=== PATIENT | male | born 1985 | race Caucasian/White ===

== ENCOUNTER 2017-05-26 09:09 | Emergency (ER) | payer OTHER ==
[~2017-05-26] VITALS: Ht 177.8 cm; Wt 97.5 kg
[~2017-05-26 09:09] MED LIST: ASPIR 8181 M1 PO; NOHOMEMEDICATIONS; TOPROL XL50 MG PO
[2017-05-26 09:25] VITALS: BP 132/90
[2017-05-26] MEDS ORDERED: CLEOCIN HCL150 MG PO ×3 (09:38→09:49)
[2017-05-26] MEDS ORDERED: HYDROCODONE-AP1 EAC6 PO ×3 (09:38→09:49)
[2017-05-26] MEDS ORDERED: IBUPROFEN 800800 M1 PO ×3 (09:38→09:49)
[2017-11-29] MEDS ORDERED: MEDROLDOSEPACK PO (11:36)
[2017-11-29] MEDS ORDERED: TRAMADOL 50 MG50 MG PO (11:36)
[2017-11-29] MEDS ORDERED: NORFLEX100 MG PO (11:36)
== END 2017-05-26 10:13 | disposition home or self-care (01) ==
LOC: ER 09:09
DX: K04.7 Periapical abscess without sinus (principal); I21.9 Acute myocardial infarction, unspecified; Z87.891 Personal history of nicotine dependence